=== PATIENT | male | born 1965 | race African-American/Black ===

== ENCOUNTER 2017-08-13 21:42 | Emergency (ER) | payer OTHER ==
[2017-08-13 22:29] LABS: ADD MAN DIFF? NO
[2017-08-13 22:31] LABS: BASO % 1 % (0-3); EOS # 0.1 x10^3/uL (0.0-0.7); EOS % 1 % (0-3); HEMATOCRIT 40.8 % (39.0-53.0); HEMOGLOBIN 13.9 g/dL (13.0-17.5); LYMPH # 1.8 x10^3/uL (1.0-4.8); LYMPH % 32 % (24-48); MEAN CORPUSCULAR HEMOGLOBIN 29 pg (25-35); MEAN CORPUSCULAR HGB CONC 34 g/dL (31-37); MEAN CORPUSCULAR VOLUME 85 fL (79-100); MONO # 0.5 x10^3/uL (0.0-1.1); MONO % 8 % (0-9); NEUT # 3.4 x10^3uL (1.8-7.7); NEUT % 59 % (31-73); PLATELET COUNT 220 x10^3/uL (140-400); RED BLOOD COUNT 4.83 x10^6/uL (4.30-5.70); RED CELL DISTRIBUTION WIDTH 13.9 % (11.5-14.5); WHITE BLOOD COUNT 5.8 x10^3/uL (4.0-11.0)
[2017-08-13 22:42] LABS: ANION GAP 4 (6-14); BLOOD UREA NITROGEN 23 mg/dL (8-26); CALCIUM 8.9 mg/dL (8.5-10.1); CARBON DIOXIDE 32 mmol/L (21-32); CHLORIDE 105 mmol/L (98-107); CREATININE 0.9 mg/dL (0.7-1.3); GFR 107.2; GLUCOSE 116 mg/dL (70-99); SODIUM 141 mmol/L (136-145)
[2017-08-13] MEDS: KETOROLAC 15 MG/ML VIAL. IV ×2 (22:54)
[2017-08-13 23:27] LABS: BILIRUBIN,URINE NEGATIVE (NEG); CLARITY,URINE CLOUDY; COLOR,URINE YELLOW; GLUCOSE,URINE NEGATIVE (NEG); NITRITE,URINE NEGATIVE (NEG); PH,URINE 7.5; PROTEIN,URINE NEGATIVE (NEG-TRACE)
[2017-08-13 23:36] LABS: BACTERIA,URINE 0 /HPF (0-FEW); RBC,URINE 0 /HPF (0-2); WBC,URINE OCC /HPF (0-4)
[2017-08-13 23:37] LABS: SPERM,URINE PRESENT /HPF; SQUAMOUS EPITHELIAL CELL,UR OCC /LPF
[2017-08-14] MEDS ORDERED: LIDOCAINE 1% PF 2 ML VIAL. ×2 (01:35)
[2017-08-14] MEDS: cefTRIAXone IM 250 MG VIAL IM ×2 (01:44)
== END 2017-08-14 02:08 | disposition home or self-care (01) ==
LOC: ER 08-14 02:08
DX: N45.1 Epididymitis (principal); G89.29 Other chronic pain; F10.20 Alcohol dependence, uncomplicated; F15.10 Other stimulant abuse, uncomplicated
CPT/HCPCS: 36415; 76870; 80048; 81001; 85025; 96372; 96374; 99285-25; J0696; J1885